=== PATIENT | male | born 1965 | race Caucasian/White ===

== ENCOUNTER 2018-07-13 11:55 | Outpatient (CLI) | payer OTHER ==
[~2018-07-13 11:55] MED LIST: NEURONTIN300 MG PO; PERCOCET 5/3251 TAB PO; POLY119PG PO
== END 2018-07-13 12:30 | disposition home or self-care (01) ==
LOC: MRI 11:55
DX: M50.10 Cervical disc disorder with radiculopathy, unspecified cervical region (principal)
CPT/HCPCS: 72141

== ENCOUNTER 2019-07-07 10:13 | Outpatient (CLI) | payer OTHER | END 2019-07-07 14:20 | disposition home or self-care (01) | LOC: MRI 10:13 | DX: M54.5 Low back pain (principal) | CPT/HCPCS: 72148 ==

== ENCOUNTER → 2019-12-20 | Outpatient (CLI) | payer OTHER | END | disposition home or self-care (01) | LOC: RAD 13:38 | PROVIDERS: ATTEND Physical Medicine & Rehabilitation | DX: M25.552 Pain in left hip (principal); M25.551 Pain in right hip ==

== ENCOUNTER 2020-04-24 12:00 | Emergency (ER) | payer OTHER ==
[~2020-04-24] VITALS: Ht 167.6 cm; Wt 60.8 kg
[2020-04-24] MEDS ORDERED: CRESTOR5 MG (12:05)
[2020-04-24] MEDS ORDERED: FLAGYL500MG PO (15:54)
[2020-04-24] MEDS ORDERED: CIPRO500 MG PO (15:54)
[2020-04-24] MEDS ORDERED: LEVSIN/SL0.125 MG SL (15:55)
[2020-04-24] MEDS ORDERED: PROBIOTIC1 EAC2 PO (15:55)
== END 2020-04-24 16:12 | disposition home or self-care (01) ==
LOC: ER 12:00
DX: K57.92 Diverticulitis of intestine, part unspecified, without perforation or abscess without bleeding (principal); R10.32 Left lower quadrant pain

== ENCOUNTER → 2020-08-07 | Outpatient (CLI) | payer OTHER ==
[~2020-08-07] MED LIST changes: +CIPRO500 MG PO; +CRESTOR5 MG; +FLAGYL500MG PO; +LEVSIN/SL0.125 MG SL; +PROBIOTIC1 EAC2 PO
== END | disposition home or self-care (01) ==
LOC: RAD 16:08
DX: R05 Cough (principal)

== ENCOUNTER 2020-10-16 10:32 | Outpatient (CLI) | payer OTHER ==
[2020-10-18] MEDS ORDERED: ROBAXIN-750750 MG PO (11:01)
== END 2020-10-16 10:47 | disposition home or self-care (01) ==
LOC: SONOGRAMA 10:32
PROVIDERS: ATTEND Physical Medicine & Rehabilitation
DX: M25.511 Pain in right shoulder (principal)

== ENCOUNTER 2021-03-20 07:37 | Outpatient (CLI) | payer OTHER ==
[~2021-03-20 07:37] MED LIST changes: +ROBAXIN-750750 MG PO
== END 2021-03-20 07:38 | disposition home or self-care (01) ==
LOC: NUCLEAR 07:37
PROVIDERS: ATTEND Internal Medicine
DX: I20.9 Angina pectoris, unspecified (principal)
CPT/HCPCS: 78452; 93017; A9500; J0153

== ENCOUNTER 2021-07-22 10:37 | Outpatient (CLI) | payer OTHER | END 2021-07-22 15:00 | disposition home or self-care (01) | LOC: LAB 10:37 | PROVIDERS: ATTEND Urology | DX: I10 Essential (primary) hypertension (principal); E11.9 Type 2 diabetes mellitus without complications; E78.00 Pure hypercholesterolemia, unspecified; N40.1 Benign prostatic hyperplasia with lower urinary tract symptoms; N39.0 Urinary tract infection, site not specified; E29.1 Testicular hypofunction; D64.89 Other specified anemias; R10.84 Generalized abdominal pain; E78.49 Other hyperlipidemia; R80.8 Other proteinuria; R73.09 Other abnormal glucose; E03.8 Other specified hypothyroidism ==

== ENCOUNTER 2021-07-30 13:59 | Outpatient (CLI) | payer OTHER | END 2021-07-30 14:02 | disposition home or self-care (01) | LOC: RAD 13:59 | PROVIDERS: ATTEND Internal Medicine | DX: I10 Essential (primary) hypertension (principal) ==

== ENCOUNTER 2022-04-30 01:25 | Outpatient (CLI) | payer OTHER | END 2022-04-30 01:35 | disposition home or self-care (01) | LOC: PPH VACUNA 01:25 | PROVIDERS: ATTEND Emergency Medicine Pediatric Emergency Medicine | DX: Z23 Encounter for immunization (principal) ==

== ENCOUNTER 2023-02-24 12:16 | Outpatient (CLI) | payer OTHER | END 2023-02-24 13:55 | disposition home or self-care (01) | LOC: RAD 12:16 | PROVIDERS: ATTEND Radiology Diagnostic Radiology | DX: M77.31 Calcaneal spur, right foot (principal) ==

== ENCOUNTER 2024-05-03 14:17 | Outpatient (CLI) | payer OTHER | END 2024-05-03 14:31 | disposition home or self-care (01) | LOC: RAD 14:17 | PROVIDERS: ATTEND Specialist | DX: Z02.79 Encounter for issue of other medical certificate (principal) ==